=== PATIENT | female | born 1985 | race Caucasian/White ===

== ENCOUNTER 2017-10-19 01:53 | Emergency (ER) | payer MEDICAID ==
[~2017-10-19] VITALS: Ht 165.1 cm; Wt 68.8 kg
[~2017-10-19 01:53] MED LIST: AMOX875T2 PO; LORA1TAB PO; MICO15CR4 TP; PRED20TA PO; TRAM50TA2 PO
[2017-10-19 01:56] VITALS: BP 110/67
[2017-10-19] MEDS ORDERED: DIPH25CA83 PO (02:55)
[2017-10-19] MEDS ORDERED: IBUP-1984 PO (02:55)
== END 2017-10-19 03:09 | disposition home or self-care (01) ==
LOC: ER 01:53
DX: L25.9 Unspecified contact dermatitis, unspecified cause (principal); M25.562 Pain in left knee; K21.9 Gastro-esophageal reflux disease without esophagitis; Z88.8 Allergy status to other drugs, medicaments and biological substances; Z79.899 Other long term (current) drug therapy
CPT/HCPCS: 99282

== ENCOUNTER 2018-10-02 18:21 | Emergency (ER) | payer MEDICAID, OTHER ==
[~2018-10-02] VITALS: Ht 167.6 cm; Wt 58.6 kg
[~2018-10-02 18:21] MED LIST changes: +DIPH25CA83 PO
[2018-10-02 18:57] VITALS: BP 117/75
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
--- NOTE | 2018-10-02 20:18 | NUR ---
pt refused crutches. She comes to the ER with a shower chair, she said that [facility] will use that.
--- NOTE | 2018-10-02 20:26 | NUR ---
pt given a brown bag lunch
[2018-10-02] MEDS ORDERED: HYDR-4353 PO (20:48)
--- NOTE | 2018-10-02 20:55 | NUR ---
pt requested crutches now, so she is being fitted
--- NOTE | 2018-10-02 21:01 | NUR ---
her friend is here
== END 2018-10-02 21:06 | disposition home or self-care (01) ==
LOC: ER 18:22
DX: S82.832A Other fracture of upper and lower end of left fibula, initial encounter for closed fracture (principal); K21.9 Gastro-esophageal reflux disease without esophagitis; F12.90 Cannabis use, unspecified, uncomplicated; Z88.8 Allergy status to other drugs, medicaments and biological substances; Z79.899 Other long term (current) drug therapy; V09.9XXA Pedestrian injured in unspecified transport accident, initial encounter; Y93.89 Activity, other specified; Y92.488 Other paved roadways as the place of occurrence of the external cause; Y99.8 Other external cause status
CPT/HCPCS: 29515; 73590; 73610; 73630; 99283

== ENCOUNTER 2018-10-15 20:00 | Emergency (ER) | payer MEDICAID, OTHER ==
[~2018-10-15] VITALS: Ht 165.1 cm; Wt 72.7 kg
[2018-10-15] MEDS ORDERED: acetaminophen 325mg tablet PO ONE (20:55)
[2018-10-15] MEDS ORDERED: ibuprofen tablet 400 MG TABLET PO ONE (20:55)
[2018-10-15 23:58] VITALS: BP 106/65
--- NOTE | 2018-10-16 00:17 | NUR ---
PT SAID SHE IS HOMELESS, [place], REFUSING SHOES I BROUGHT HER "I WILL JUST WEAR MY FLIP FLOPS", PT VERBALIZED UNDERSTANDING SPLINT IS NON WEIGHT BEARING, SPLINT CHECKED BY DR PERLA, SHORT LEG SPLINT PLACED BY MILLED RUBBER TENDER, WILL, PT IS NOT ANSWERING SOME QUESTIONS, DIFFICULT TO UNDERSTAND WHAT PT IS SAYING AT TIMES,
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
== END 2018-10-16 00:34 | disposition home or self-care (01) ==
LOC: ER 20:02
DX: S82.832D Other fracture of upper and lower end of left fibula, subsequent encounter for closed fracture with routine healing (principal); M54.5 Low back pain; K21.9 Gastro-esophageal reflux disease without esophagitis; F12.90 Cannabis use, unspecified, uncomplicated; Z88.8 Allergy status to other drugs, medicaments and biological substances; Z79.899 Other long term (current) drug therapy; V09.9XXD Pedestrian injured in unspecified transport accident, subsequent encounter
CPT/HCPCS: 29515; 93971; 99284

== ENCOUNTER 2024-07-15 00:50 | Emergency (ER) | payer MEDICAID ==
[~2024-07-15] VITALS: Ht 165.1 cm; Wt 72.7 kg
[2024-07-15 02:23] VITALS: BP 133/92; PULSE 97; RESP 18; TEMP 98; O2SAT 96
== END 2024-07-15 02:19 | disposition home or self-care (01) ==
LOC: ER 00:52
DX: G89.29 Other chronic pain (principal); M79.606 Pain in leg, unspecified; K21.9 Gastro-esophageal reflux disease without esophagitis; F12.90 Cannabis use, unspecified, uncomplicated; Z88.8 Allergy status to other drugs, medicaments and biological substances
CPT/HCPCS: 99281